=== PATIENT | male | born 1985 | race Caucasian/White ===

== ENCOUNTER 2020-05-31 19:19 | Emergency (ER) | payer OTHER ==
[~2020-05-31] VITALS: Ht 170.2 cm; Wt 72.6 kg
[2020-05-31] MEDS ORDERED: NAPROSYN500 MG PO (20:41)
[2020-05-31 20:56] VITALS: BP 117/77
== END 2020-05-31 20:57 | disposition home or self-care (01) ==
LOC: EDBD 19:19 → ER 19:19
DX: S63.502A Unspecified sprain of left wrist, initial encounter (principal); S80.212A Abrasion, left knee, initial encounter; S80.211A Abrasion, right knee, initial encounter; M25.461 Effusion, right knee; F17.210 Nicotine dependence, cigarettes, uncomplicated; V89.2XXA Person injured in unspecified motor-vehicle accident, traffic, initial encounter; Y93.89 Activity, other specified; Y92.89 Other specified places as the place of occurrence of the external cause; Y99.8 Other external cause status